=== PATIENT | female | born 1990 | race Two or more races ===

== ENCOUNTER 2017-09-29 12:56 | Emergency (ER) | payer OTHER ==
[~2017-09-29] VITALS: Ht 157.5 cm; Wt 53.5 kg
[2017-09-29] MEDS ORDERED: PRENATABS FA T1 EACH (13:02)
== END 2017-09-29 16:42 | disposition home or self-care (01) ==
LOC: ER 12:56
DX: N93.8 Other specified abnormal uterine and vaginal bleeding (principal)

== ENCOUNTER 2017-10-01 17:53 | Emergency (ER) | payer OTHER ==
[~2017-10-01] VITALS: Ht 160 cm; Wt 53.1 kg
[~2017-10-01 17:53] MED LIST: PRENATABS FA T1 EACH
== END 2017-10-01 23:56 | disposition home or self-care (01) ==
LOC: ER 17:53
DX: O20.0 Threatened abortion (principal); O34.81 Maternal care for other abnormalities of pelvic organs, first trimester; N83.291 Other ovarian cyst, right side; Z34.01 Encounter for supervision of normal first pregnancy, first trimester

== ENCOUNTER 2018-04-13 10:28 | Emergency (ER) | payer OTHER ==
[~2018-04-13] VITALS: Ht 157.5 cm; Wt 55.8 kg
[2018-04-13] MEDS ORDERED: FOLIC ACID1 MG PO (10:54)
== END 2018-04-13 15:55 | disposition home or self-care (01) ==
LOC: ER 10:28
DX: O26.891 Other specified pregnancy related conditions, first trimester (principal); R10.2 Pelvic and perineal pain; Z34.81 Encounter for supervision of other normal pregnancy, first trimester

== ENCOUNTER 2018-08-11 13:28 | Outpatient (CLI) | payer OTHER ==
[~2018-08-11 13:28] MED LIST changes: +FOLIC ACID1 MG PO
[2018-08-11] MEDS ORDERED: PRENATAL TABLE1 EAC4 PO (14:06)
== END 2018-08-12 08:35 | disposition home or self-care (01) ==
LOC: OBS/DEL 13:28
DX: O26.892 Other specified pregnancy related conditions, second trimester (principal); R42 Dizziness and giddiness; R10.2 Pelvic and perineal pain; Z34.82 Encounter for supervision of other normal pregnancy, second trimester

== ENCOUNTER 2018-11-13 08:44 | Inpatient (IN) | payer OTHER ==
[~2018-11-13] VITALS: Ht 157.5 cm; Wt 162.0 kg
[~2018-11-13 08:44] MED LIST changes: +PRENATAL TABLE1 EAC4 PO
[2018-11-19] MEDS ORDERED: RANITIDINE HCL150 M1 PO (15:56)
[2018-12-06] MEDS ORDERED: PREPLUS CA-FE1 EACH PO (08:49)
== END 2018-12-06 11:47 | disposition home or self-care (01) | DRG 788 ==
LOC: O/R 11-19 15:00 → LDR 12-03 09:19 → OB/GYN 12-03 09:19 → O/R 12-03 18:16 → OB/GYN 12-03 19:10
PROVIDERS: ADMIT Obstetrics & Gynecology
PROC: 3E033VJ Introduction of Other Hormone into Peripheral Vein, Percutaneous Approach (ICD-10-PCS; 2018-12-03)
PROC: 4A1HXCZ Monitoring of Products of Conception, Cardiac Rate, External Approach (ICD-10-PCS; 2018-12-03)
PROC: 10D00Z1 Extraction of Products of Conception, Low, Open Approach (ICD-10-PCS; principal; 2018-12-03 19:00)
DX: O82 Encounter for cesarean delivery without indication (principal); O61.0 Failed medical induction of labor; Z3A.39 39 weeks gestation of pregnancy; Z37.0 Single live birth

== ENCOUNTER 2019-06-06 23:08 | Inpatient (IN) | payer OTHER ==
[~2019-06-06] VITALS: Ht 157.5 cm; Wt 59.4 kg
[~2019-06-06 23:08] MED LIST changes: +PREPLUS CA-FE1 EACH PO; +RANITIDINE HCL150 M1 PO
== END 2019-06-08 13:05 | disposition home or self-care (01) | DRG 819 ==
LOC: ER 23:08 → OB/GYN 06-07 08:21
PROVIDERS: ADMIT Obstetrics & Gynecology
PROC: 0UB50ZZ Excision of Right Fallopian Tube, Open Approach (ICD-10-PCS; 2019-06-07)
PROC: 10T20ZZ Resection of Products of Conception, Ectopic, Open Approach (ICD-10-PCS; principal; 2019-06-07 10:00)
DX: O00.111 Right tubal pregnancy with intrauterine pregnancy (principal)

== ENCOUNTER 2023-05-15 09:57 | Emergency (ER) | payer OTHER ==
[~2023-05-15] VITALS: Ht 157.5 cm; Wt 55.3 kg
[2023-05-15] MEDS ORDERED: CEFTRIAXONE SODIUM 1,000 MG VIAL IM STA (11:16)
[2023-05-15 11:44] LABS: HEMATOCRIT 35.6 % (36.0-45.00); HEMOGLOBIN 11.9 g/dL (12.0-15.00); MEAN CELL VOLUME 84.4 fL (80.00-100.00); MEAN CORPUSCULAR HEMOGLOBIN 28.1 pg (27.00-32.0); MEAN CORPUSCULAR HGB CONC 33.3 g/dl (32.0-36.0); PLATELET COUNT 289 K/uL (150-450); RED BLOOD COUNT 4.21 M/uL (4.00-6.00); RED CELL DISTRIBUTION WIDTH 14.4 % (11.5-14.5)
[2023-05-15] MEDS ORDERED: ZITHROMAX500 MG PO (12:47)
== END 2023-05-15 12:54 | disposition home or self-care (01) ==
LOC: ER 09:57
PROVIDERS: Emergency Medicine
DX: J03.90 Acute tonsillitis, unspecified (principal); Z20.822 Contact with and (suspected) exposure to COVID-19; Z88.4 Allergy status to anesthetic agent

== ENCOUNTER 2024-01-24 20:51 | Emergency (ER) | payer OTHER ==
[~2024-01-24] VITALS: Ht 157.5 cm; Wt 54.0 kg
[~2024-01-24 20:51] MED LIST changes: +ZITHROMAX500 MG PO
[2024-01-24 21:56] VITALS: BP 125/81; O2SAT 99
[2024-01-24] MEDS ORDERED: DEXAMETHASONE SODIUM PHOSPHATE 4 MG/ML VIAL IM STA (22:20)
== END 2024-01-24 22:42 | disposition home or self-care (01) ==
LOC: ER 20:54
DX: L50.0 Allergic urticaria (principal); R21 Rash and other nonspecific skin eruption; Z88.4 Allergy status to anesthetic agent